=== PATIENT | male | born 1980 | race Hispanic/Latino ===

== ENCOUNTER 2019-07-26 23:32 | Emergency (ER) | payer BC, OTHER ==
[2019-07-27] MEDS ORDERED: SODIUM CHLORIDE 0.9% 1000ML 1,000 ML IV ONE (00:12)
[2019-07-27] MEDS ORDERED: ONDANSETRON HCL 4 MG/2 ML VIAL ONE (00:14)
[2019-07-27] MEDS ORDERED: METOCLOPRAMIDE 10 MG/2 ML VIAL ONE (00:14)
[2019-07-27] MEDS ORDERED: FAMOTIDINE/PF 20 MG/2 ML VIAL IV ONE (00:15)
[2019-07-27 00:21] LABS: BASOPHILS % (AUTO) 0.5 % (0.0-5.0); EOSINOPHILS % (AUTO) 0.9 % (0.0-8.0); HEMATOCRIT 48.6 % (42-54); LYMPHOCYTES % (AUTO) 24.4 % (21.0-51.0); MEAN CORPUSCULAR HEMOGLOBIN 30.1 pg (27.0-33.0); MEAN CORPUSCULAR HGB CONC 33.9 g/dL (32.0-36.0); MEAN CORPUSCULAR VOLUME 88.8 fL (79-99); MONOCYTES % (AUTO) 7.9 % (3.0-13.0); NEUTROPHILS % (AUTO) 66.3 % (40.0-77.0); PLATELET COUNT (AUTO) 302 K/uL (130-400); RED BLOOD CELL COUNT(AUTO) 5.47 MIL/uL (4.50-6.20); RED CELL DISTRIBUTION WIDTH 13.2 % (11.0-15.5); WHITE BLOOD COUNT (AUTO) 10.3 K/uL (4.8-10.8)
[2019-07-27 00:28] LABS: INR 1.12 (0.85-1.15); PARTIAL THROMBOPLASTIN TIME 31.5 SEC (26.3-35.5); PROTHROMBIN TIME 11.7 SEC (9.6-11.6)
[2019-07-27 00:31] LABS: CREATININE 1.3 mg/dL (0.5-1.5); POTASSIUM 3.9 mmol/L (3.5-5.1)
[2019-07-27 00:35] LABS: BILIRUBIN,TOTAL 0.4 mg/dL (0.2-1.0); TOTAL PROTEIN, SERUM 7.5 g/dL (6.0-8.3)
== END 2019-07-27 02:04 | disposition home or self-care (01) ==
LOC: EDH 23:32
DX: R10.13 Epigastric pain (principal); F31.9 Bipolar disorder, unspecified; F41.9 Anxiety disorder, unspecified; Z90.49 Acquired absence of other specified parts of digestive tract; Z79.899 Other long term (current) drug therapy
CPT/HCPCS: 36415; 80053; 82550; 83605; 83690; 84484; 85025; 85610; 85730; 93005; 96374; 96375; 99285; J2405; J2765; J3490; J7030

== ENCOUNTER → 2022-08-08 | Outpatient (CLI) | payer OTHER | END | disposition home or self-care (01) | LOC: RAH 07:13 | PROVIDERS: ATTEND Internal Medicine Gastroenterology | DX: R10.10 Upper abdominal pain, unspecified (principal); R14.0 Abdominal distension (gaseous); R11.0 Nausea | CPT/HCPCS: 78264; A9541 ==

== ENCOUNTER 2023-03-20 17:27 | Emergency (ER) | payer OTHER ==
[~2023-03-20] VITALS: Ht 177.8 cm; Wt 115.2 kg
[2023-03-20] MEDS ORDERED: MORPHINE 4 MG SYG IVP ONE (18:30)
[2023-03-20] MEDS ORDERED: 0.9%NACL 1000ML 1,000 ML IV ONE (18:30)
[2023-03-20] MEDS ORDERED: ONDANSETRON 4MG INJ IVP ONE (18:30)
[2023-03-20 19:15] LABS: BASOPHILS % (AUTO) 0.5 % (0.0-5.0); EOSINOPHILS % (AUTO) 1.9 % (0.0-8.0); HEMATOCRIT 52.7 % (42-54); LYMPHOCYTES % (AUTO) 18.7 % (21.0-51.0); MEAN CORPUSCULAR HEMOGLOBIN 29.3 pg (27.0-33.0); MEAN CORPUSCULAR HGB CONC 33.8 g/dL (32.0-36.0); MEAN CORPUSCULAR VOLUME 86.8 fL (79-99); MONOCYTES % (AUTO) 8.2 % (3.0-13.0); NEUTROPHILS % (AUTO) 69.8 % (40.0-77.0); PLATELET COUNT (AUTO) 358 K/uL (130-400); RED BLOOD CELL COUNT(AUTO) 6.07 MIL/uL (4.50-6.20); RED CELL DISTRIBUTION WIDTH 13.2 % (11.0-15.5); WHITE BLOOD COUNT (AUTO) 12.4 K/uL (4.8-10.8)
[2023-03-20 19:29] LABS: CREATININE 1.3 mg/dL (0.5-1.5); POTASSIUM 3.6 mmol/L (3.5-5.1)
[2023-03-20 19:35] LABS: ALBUMIN 4.2 g/dL (3.5-5.0); TOTAL PROTEIN, SERUM 8.1 g/dL (6.0-8.3)
[2023-03-20 22:37] LABS: APPEARANCE,URINE CLEAR (CLEAR); BILIRUBIN,URINE NEGATIVE (NEGATIVE); COLOR,URINE LIGHT-YELLOW (YELLOW); GLUCOSE, URINE (UA) NEGATIVE (NEGATIVE); KETONES,URINE NEGATIVE (NEGATIVE); LEUKOCYTE ESTERASE ,URINE NEGATIVE Leu/uL (NEGATIVE); NITRATE,URINE NEGATIVE (NEGATIVE); OCCULT BLOOD,URINE NEGATIVE (NEGATIVE); PH,URINE 5.5 (5.0-8.0); PROTEIN,URINE NEGATIVE (NEGATIVE); UROBILINOGEN,URINE 0.2 mg/dL (0.2-1.0)
[2023-03-20] MEDS ORDERED: FAMO20TA8 PO (22:58)
[2023-03-20 23:25] VITALS: BP 130/78
== END 2023-03-20 23:25 | disposition home or self-care (01) ==
LOC: EDH 17:27
DX: K29.70 Gastritis, unspecified, without bleeding (principal); R10.10 Upper abdominal pain, unspecified; R11.0 Nausea; G89.29 Other chronic pain
CPT/HCPCS: 99285; 74176; 96374; 96375; 84484; 80053; 83690; 85025; 81003; 36415; 93005; J7030; J2405; J2270

== ENCOUNTER 2024-12-01 17:55 | Emergency (ER) | payer BC, OTHER ==
[~2024-12-01] VITALS: Ht 177.8 cm; Wt 113.4 kg
[~2024-12-01 17:55] MED LIST: FAMO20TA8 PO
[2024-12-01 18:29] LABS: BASOPHILS # (AUTO) 0.05 K/uL (0.00-0.20); BASOPHILS % (AUTO) 0.5 % (0.0-5.0); EOSINOPHILS # (AUTO) 0.28 K/uL (0.00-0.70); EOSINOPHILS % (AUTO) 3.1 % (0.0-8.0); HEMATOCRIT 50.8 % (42-54); IMMATURE GRANULOCYTE ABSOLUTE 0.03 K/uL (0-1); LYMPHOCYTES # (AUTO) 1.8 K/uL (1.0-4.8); LYMPHOCYTES % (AUTO) 19.9 % (21.0-51.0); MEAN CORPUSCULAR HEMOGLOBIN 29.3 pg (27.0-33.0); MEAN CORPUSCULAR HGB CONC 33.5 g/dL (32.0-36.0); MEAN CORPUSCULAR VOLUME 87.6 fL (79-99); MONOCYTES # (AUTO) 0.6 K/uL (0.1-1.0); MONOCYTES % (AUTO) 6.9 % (3.0-13.0); NEUTROPHILS # (AUTO) 6.4 K/uL (1.8-7.7); NEUTROPHILS % (AUTO) 69.3 % (40.0-77.0); PLATELET COUNT (AUTO) 327 K/uL (130-400); RED CELL DISTRIBUTION WIDTH 12.7 % (11.0-15.5); WHITE BLOOD COUNT (AUTO) 9.2 K/uL (4.8-10.8)
[2024-12-01 18:40] LABS: CREATININE 1.2 mg/dL (0.5-1.3); POTASSIUM 4.1 mmol/L (3.5-5.1)
--- NOTE | 2024-12-01 18:58 | HMCIMG ---
CT HEAD/BRAIN W/O CONTRAST CLINICAL HISTORY: r/facial droop COMPARISON: None TECHNIQUE: Multiple sequential axial images of the head were obtained from the base of the skull through vertex. CT was performed with one or more of the following dose reduction techniques: automated exposure control, adjustment of the mA and/or kV according to patient size, or use of iterative reconstruction technique FINDINGS: The brain parenchyma and CSF spaces are unremarkable. The orbital contents, paranasal sinuses and mastoid air cells are within normal limits. The calvarium is intact. IMPRESSION: Normal study
[2024-12-01] MEDS ORDERED: VALA100031 PO (20:09)
[2024-12-01] MEDS ORDERED: PRED20TA3 PO (20:09)
--- NOTE | 2024-12-01 20:17 | ERN ---
General Chief Complaint: Face Pain/Problem Stated Complaint: FACIAL DROOP Time Seen by MD: 18:07 Time Seen by Midlevel: 18:07 Source: patient History of Present Illness Initial Comments Patient is a 44-year-old male with a past medical history of a left eye retinal detachment presenting to the emergency department of a right facial droop. The patient states his symptoms started four days ago on MondayNovember 27. He states his symptoms started with ear fullness/pain. This developed into some right jaw pain and right eyelid weakness. Yesterday he noticed a facial droop that worsened today. Denies any focal weakness to his upper and lower extremities. The patient is still able to walk without any assistance. Denies any vision changes, dizziness, headache, or any other symptoms at this time. Denies any recent fall or head injury. He does report a recent viral illness where he has been taking [id number]-qkoiclg saline spray and Mucinex. Allergies: Coded Allergies: Iodinated Contrast Media (Unverified Allergy, Unknown, 03/20/23) Home Meds Active Scripts Famotidine (Famotidine) 20 Mg Tablet, 20 MG PO BID, #20 TAB Prov:SARINA VICTORIA 03/20/23 Past Medical History Past Medical History: No Pertinent History Medical History Other: GASTOPARESIS, GASTRITIS, CHRONIC BACK PAIN, GLAUCOMA Past Surgical History: Other Surgical History Other: EYE SURGERY ROS Dictation CONSTITUTIONAL: Negative except for HPI HEAD/FACE: Negative except for HPI EENT: Negative except for HPI RESPIRATORY: Negative except for HPI GASTROINTESTINAL/ABDOMINAL: Negative except for HPI GENITOURINARY: Negative except for HPI MUSCULOSKELETAL: Negative except for HPI INTEGUMENTARY: Negative except for HPI NEUROLOGICAL/PSYCH: Negative except for HPI HEMATOLOGIC/LYMPHATIC: Negative except for HPI All Systems Negative, Except as noted above. 13 point review of systems assessed and all negative except for above. Physical Exam Physical Exam Dictation Vital Signs reviewed General Appearance: Alert, oriented x 3, no acute distress, well developed, nourished. Head and Face: non-traumatic. Eyes: PERRL, pink conjunctivas, eyelid no trauma, anterior chamber with arcus senilis. Ears: Pinnas intact and no signs of trauma or erythema ear canals clear and no discharge TM no erythema Nose: No discharge, no bleeding. Oropharynx: Mouth normal, tongue pink, pharynx clear,no erythema, tonsils no exudates, no abscesses noted, mucous membrane moist Neck: Supple, non-tender, no thyromegaly, no masses, no JVD, no bruits Breast:Deferred Chest:No tenderness, no crepitus, no paradoxical movement, no retractions Lungs:Clear, well-ventilated, symmetric, no rales, no wheezing, no rhonchi, no stridor, good breath sounds bilaterally Heart: Regular rate, regular rhythm, no murmur, no gallops Vascular: no peripheral edema, Abdomen: Soft, positive bowel sounds, nondistended, no guarding, nontender, no rebound, no masses no hepatomegaly, no splenomegaly, no Ambrocio's sign, no hernias. Rectal: Deferred Genital: Deferred Neurological: Normal speech, motor function intact, sensory function intact, right-sided facial droop with forehead involvement, 5/5 strength to bilateral upper and lower extremities. Sensation is intact to face, upper arms, chest, and bilateral lower extremities., patient is ambulatory with a normal gait, patient is unable to fully close his right eye, Musculoskeletal: Neck nontender, full range of motion, back nontender, full range of motion, Extremities: nontender, full range of motion Skin: Color pink, dry, no turgor, no rash, no lacerations, no abrasions, no contusions. Lymphatic: Deferred Stroke Patient?: No Is Patient Candidate for t-PA?: No Did the Patient Receive t-PA?: No NIH STROKE SCALE: NIH STROKE SCALE Response (Comments) Value Level of Consciousness Alert 0 Ask patient month and their age Answers both correct 0 Command to open eyes, make fist and let go Obeys both correct 0 Best gaze (horizontal eye movement) Normal 0 Visual Field Testing No Visual Field Loss 0 Facial Paresis Minor Paralysis 1 Motor Function - Left Arm Normal 0 Motor Function - Right Arm Normal 0 Motor Function - Left Leg Normal 0 Motor Function - Right Leg Normal 0 Limb Ataxia No Ataxia 0 Sensory-pin prick to arms, legs, trunk and face Normal 0 Best Language (describe picture, name items and read) No Aphasia 0 Dysarthria (read several words) Normal Articulation 0 Extinction and Inattention Normal 0 Total 1 Results Laboratory and Microbiology Lab and Micro Result Laboratory Tests Test 12/01/24 18:17 White Blood Count 9.2 K/uL (4.8-10.8) Red Blood Count 5.80 MIL/uL (4.50-6.20) Hemoglobin 17.0 g/dL (14.0-18.0) Hematocrit 50.8 % (42-54) Mean Corpuscular Volume 87.6 fL (79-99) Mean Corpuscular Hemoglobin 29.3 pg (27.0-33.0) Mean Corpuscular Hemoglobin Concent 33.5 g/dL (32.0-36.0) Red Cell Distribution Width 12.7 % (11.0-15.5) Platelet Count 327 K/uL (130-400) Mean Platelet Volume 9.6 fL (7.5-10.5) Immature Granulocyte % (Auto) 0.3 % (0-1) Neutrophils (%) (Auto) 69.3 % (40.0-77.0) Lymphocytes (%) (Auto) 19.9 % (21.0-51.0) L Monocytes (%) (Auto) 6.9 % (3.0-13.0) Eosinophils (%) (Auto) 3.1 % (0.0-8.0) Basophils (%) (Auto) 0.5 % (0.0-5.0) Neutrophils # (Auto) 6.4 K/uL (1.8-7.7) Lymphocytes # (Auto) 1.8 K/uL (1.0-4.8) Monocytes # (Auto) 0.6 K/uL (0.1-1.0) Eosinophils # (Auto) 0.28 K/uL (0.00-0.70) Basophils # (Auto) 0.05 K/uL (0.00-0.20) Absolute Immature Granulocyte (auto 0.03 K/uL (0-1) Nucleated Red Blood Cells 0.0 % (0.0-0.19) Sodium Level 141 mmol/L (136-145) Potassium Level 4.1 mmol/L (3.5-5.1) Chloride Level 103 mmol/L (101-111) Carbon Dioxide Level 32 mmol/L (21-32) Blood Urea Nitrogen 14 mg/dL (7-18) Creatinine 1.2 mg/dL (0.5-1.3) Glomerular Filtration Rate Calc 77 mL/min (>90) Random Glucose 97 mg/dL (70-105) Total Calcium 8.7 mg/dL (8.5-10.1) Labs Reviewed?: Yes MDM MDM: Patient is a 44-year-old male with a past medical history of a left eye retinal detachment presenting to the emergency department of a right facial droop. The patient states his symptoms started four days ago on MondayNovember 27. He states his symptoms started with ear fullness/pain. This developed into some right jaw pain and right eyelid weakness. Yesterday he noticed a facial droop that worsened today. Denies any focal weakness to his upper and lower extremities. The patient is still able to walk without any assistance. Denies any vision changes, dizziness, headache, or any other symptoms at this time. Denies any recent fall or head injury. On physical examination the patient is in no acute distress. The patient arrived via pr ivate vehicle and was able to ambulate from his vehicle into the triaged examination room with no assistance and with a normal gait. His physical examination reveals a right-sided facial droop with forehead involvement. Sensation is intact to the face, upper extremities, and lower extremities. He was full range motion of bilateral upper and lower extremities. There is 5/5 strength to bilateral upper and lower extremities. Sensation is intact. There was no slurred speech noted. Code stroke was not called given onset of symptoms and I have high clinical suspicion for Chavez's palsy. NIH of 1 given his right facial droop. CBC and chemistries are stable. CT scan of the head does not show any intracranial abnormality. On repeat examination the patient was sitting comfortably in his examination bed. He was on his phone playing video games and is in no acute distress. Repeat neurological examination is stable. The patient will be treated for Chavez's palsy. He was given 125 mg of Solu- Medrol IV and ketorolac. He will be discharged home with a prescription for valacyclovir and prednisone. He was advised to follow up with his primary care doctor in 2-3 days for repeat evaluation. The patient was given strict return precautions and he was stable for discharge at this time. All of his questions were answered and patient is comfortable going home. Differential diagnosis: Stroke, Chavez's palsy, viral illness There are no social concerns with this patient. Prescription drug management Prescriptions will include: Valacyclovir, prednisone, Medical management and examination interpretation discussions were had by me with other qualified healthcare professionals as indicated for the patient's care. ED Course Orders Procedure Category Date Status Time Cbc With Differential LAB 12/01/24 Complete 18:08 Basic Metabolic Panel LAB 12/01/24 Complete 18:08 Urinalysis Profile LAB 12/01/24 Logged 18:08 Drug Screen Urine LAB 12/01/24 Logged 18:08 Ct Head/Brain W/O CT 12/01/24 Resulted Contrast 18:08 Vital Signs Date Time Temp Pulse Resp B/P (MAP) Pulse Ox O2 Delivery O2 Flow Rate FiO2 12/01/24 18:10 98.1 75 16 113/76 97 Room Air* 0 21 12/01/24 17:57 98.8 78 18 111/79 98 Room Air 0 [facility] [address] [address] IMAGING REPORT Signed PATIENT: LUPE HINKLE MR#: [id number] : 1980 SEX: M AGE: 44 LOCATION: [facility] ORDER 08 STATUS: REG ER REPORT#: [id number] SERVICE 07 REASON: r/facial droop ORDERING PHYSICIAN: MELISSA POMPA PROCEDURE: HEAD WO - CT HEAD/BRAIN W/O CONTRAST CT HEAD/BRAIN W/O CONTRAST CLINICAL HISTORY: r/facial droop COMPARISON: None TECHNIQUE: Multiple sequential axial images of the head were obtained from the base of the skull through vertex. CT was performed with one or more of the following dose reduction techniques: automated exposure control, adjustment of the mA and/or kV according to patient size, or use of iterative reconstruction technique FINDINGS: The brain parenchyma and CSF spaces are unremarkable. The orbital contents, paranasal sinuses and mastoid air cells are within normal limits. The calvarium is intact. IMPRESSION: Normal study DICTATED BY: SIOBHAN ARCOS DO DATE: 12/01/241855 ELECTRONICALLY SIGNED BY: SIOBHAN ARCOS DO DATE: 12/01/241857 DX & DISP Disposition: Discharge Departure Impression: Primary Impression: Chavez's palsy Condition: Stable Scripts Valacyclovir HCl (Valacyclovir) 1,000 Mg Tablet 1 TAB PO TID for 7 Days, #21 TAB 0 Refills Prov: MELISSA POMPA 12/01/24 Prednisone (Prednisone) 20 Mg Tablet 1 TAB PO BID for 7 Days, #14 TAB 0 Refills Prov: MELISSA POMPA 12/01/24 Additional Instructions: Your blood work today is unremarkable. Your CT scan of the head is normal. Your symptoms are consistent with Chavez's palsy. I recommend corneal eye protection. You may use artificial tears during the day. You may also take your eye shut or wear an eye patch to protect your c ornea from any infection or abrasion. I have given you a prescription for steroids and antivirals which should help improve your symptoms over the next couple of days/weeks. Please follow up with your primary care doctor next week for further evaluation. If you develop any new or worsening symptoms please report to the ER for further evaluation. Referrals: JEMIMA SMITH (PCP) Time of Disposition: 20:07 I have reviewed the case, and I agree with, Diagnosis and Plan I performed the substantive portion of the visit. I have reviewed and personally made and approve the management plan that is documented in the note by myself or the IVETTE. I acknowledge for responsibility for the patient's management plan. MELISSA POMPA Dec 01, 2024 20:17
[2024-12-01] MEDS: Solu-medROL 125MG VIAL IVP ONE (20:40)
[2024-12-01] MEDS: ketOROlac 15MG/ML VIAL (15MG/ML) IV ONE (20:40)
[2024-12-01 20:45] VITALS: BP 110/80; PULSE 72; RESP 16; TEMP 98; O2SAT 98
== END 2024-12-01 20:57 | disposition home or self-care (01) ==
LOC: EDH 17:55
DX: G51.0 Bell's palsy (principal); Z91.041 Radiographic dye allergy status
CPT/HCPCS: 99284; 96374; 70450; 96375; 80048; 85025; 36415; J1885; J2919

== ENCOUNTER 2025-04-28 14:55 | Emergency (ER) | payer BC ==
[~2025-04-28] VITALS: Ht 177.8 cm; Wt 120.2 kg
[~2025-04-28 14:55] MED LIST changes: +PRED20TA3 PO; +VALA100031 PO
[2025-04-28] MEDS: BENZONATATE 100 MG CAPSULE PO STA (15:42)
--- NOTE | 2025-04-28 15:48 | EKG ---
[facility] Test Date: 2025-04-28 Test Time: 15:44:10 Pat Name: LUPE HINKLE Department: [facility] Room: Gender: M Cigarette Catcher: 08 : 1980 Requested By: RENETTA CHARLES Order Number: [id number] Reading MD: Reshma Vergara Measurements Intervals [place] Rate: 101 P: 30 [place]: 133 QRS: -27 QRSD: 112 T: 39 QT: 350 QTc: 455 Interpretive Statements Sinus tachycardia Compared to ECG 03/20/2023 18:32:16 Sinus rhythm no longer present Intraventricular conduction delay no longer present Electronically Signed On 04-30-2025 14:13:01 CDT by Reshma Vergara Please click the below link to view image of tracing.
[2025-04-28 15:50] LABS: IMMATURE GRANULOCYTE ABSOLUTE 0.07 K/uL (0-1); NUCLEATED RED BLOOD CELLS 0.0 % (0.0-0.19); PLATELET COUNT (AUTO) 307 K/uL (130-400); RED BLOOD CELL COUNT(AUTO) 5.38 MIL/uL (4.50-6.20); RED CELL DISTRIBUTION WIDTH 13.1 % (11.0-15.5); WHITE BLOOD COUNT (AUTO) 13.8 K/uL (4.8-10.8)
[2025-04-28 15:53] VITALS: PULSE 102; RESP 18
[2025-04-28 16:03] LABS: CREATININE 0.9 mg/dL (0.5-1.3); GLOMERULAR FILTR. RATE CALC 109.0 mL/min (>90); GLUCOSE,RANDOM 94.0 mg/dL (70-105); SODIUM SERUM 146.0 mmol/L (136-145); UREA NITROGEN, BLOOD 12.0 mg/dL (7-18)
[2025-04-28 16:05] LABS: SARS-CoV-2, RNA, NAAT POSITIVE SARS CoV-2 (NEGATIVE)
[2025-04-28 16:14] LABS: INFLUENZA TYPE A Negative For Type A (NEGATIVE); INFLUENZA TYPE B Negative For Type B (NEGATIVE)
--- NOTE | 2025-04-28 16:31 | HMCIMG ---
EXAM: CR Chest, 1 View. CLINICAL HISTORY: cough COMPARISON: None provided. FINDINGS: LUNGS: The lungs show no infiltrate or other acute finding. PLEURAL SPACES: No pleural effusion or pneumothorax. MEDIASTINUM: The cardiomediastinal silhouette is within normal limits. BONES: No aggressive appearing osseous lesion seen. IMPRESSION: No acute cardiopulmonary pathology is evident. /[place]
[2025-04-28] MEDS ORDERED: LORA10TA7 PO (17:02)
[2025-04-28] MEDS ORDERED: ALBUHFA IH (17:02)
[2025-04-28] MEDS ORDERED: BENZ-39 PO (17:02)
--- NOTE | 2025-04-28 17:12 | ERN ---
ED Note History of Present Illness Stated Complaint: SOB X 2 WEEKS, TROUBLE BREATHING Chief Complaint: Cough Time Seen by MD: 14:59 Time Seen by Midlevel: 15:01 Dictation: 44-year-old male coming in with complaints of cough, states has been intermitten t for the last couple of weeks. On the 16 of April was seen by the PCP which prescribed him amoxicillin Z-Edgard and albuterol. Patient states he felt better but then on Monday he began again with the shortness a breath. Denies having any medical problems. Allergies: Coded Allergies: Iodinated Contrast Media (Unverified Allergy, Unknown, 03/20/23) Home Meds Active Scripts Valacyclovir HCl (Valacyclovir) 1,000 Mg Tablet, 1 TAB PO TID for 7 Days, #21 TAB 0 Refills Prov:MELISSA POMPA 12/01/24 Prednisone (Prednisone) 20 Mg Tablet, 1 TAB PO BID for 7 Days, #14 TAB 0 Refills Prov:MELISSA POMPA 12/01/24 Famotidine (Famotidine) 20 Mg Tablet, 20 MG PO BID, #20 TAB Prov:SARINA VICTORIA V [employer] 03/20/23 Past Medical History Past Medical History: Asthma, Other Additional Past Medical Hx: GASTOPARESIS, GASTRITIS, CHRONIC BACK PAIN, GLAUCOMA, BELLS PALSY Surgical History: Other Surgical History Other: EYE SURGERY Review of System Dictation Constitutional: Negative for fever,chills, and weight loss Eyes: Negative for injury, pain,redness, and discharge ENT: Negative for injury,pain or swelling Cardiovascular: Negative for chest pain, palpitations, and edema Respiratory complaining of cough Abdomen/GI: Negative for abdominal pain, nausea, vomiting, diarrhea, and constipation Back: Negative for injury and pain : Negative for injury, bleeding and discharge MS/Extremity: Negative for injury and deformity Skin: Negative for rash, and discoloration Neuro: Negative for headache, weakness, numbness, tingling, and seizure Psych: Negative for suicide ideation, homicidal ideation, and hallucinations Review of Systems: was completed Initial Vital Sign VS Vital Signs Date Time Temp Pulse Resp B/P (MAP) Pulse Ox O2 Delivery O2 Flow Rate FiO2 04/28/25 14:57 98.2 106 18 124/82 95 Room Air 0 04/28/25 15:09 21 Physical Exam Dictation General: awake, alert, NAD Head/Face: Normocephalic, atraumatic Eyes: PERRL, EOMI, vision at baseline ENT: oral cavity clear, TMs clear, no signs of infection Neck: Trachea midline, supple, no nuchal rigidity Cardiovascular: RRR, normal S1/S2, No MRGs, no JVD Respiratory: CTAB, no respiratory distress, No rales or wheezes Abdomen: Soft, non-tender, non-distended, normal bowel sounds, no guarding or rebound. Skin: Warm, dry, normal turgor, no rash MS/Extremity: Pulses equal, no cyanosis, neurovascular intact, FROM Neuro: COAx4, GCS 15, strength 5/5, CN 2-12 intact, normal cerebellar exam, normal gait, Psych: Normal behavior, mood, and affect normal Results (Laboratory/Radiology) Laboratory/Radiology Laboratory Tests Test 04/28/25 15:37 04/28/25 15:39 Influenza Type A Antigen Negative For Type A Influenza Type B Antigen Negative For Type B SARS-CoV-2, RNA, NAAT POSITIVE SARS CoV-2 White Blood Count 13.8 K/uL (4.8-10.8) H Red Blood Count 5.38 MIL/uL (4.50-6.20) Hemoglobin 15.8 g/dL (14.0-18.0) Hematocrit 48.3 % (42-54) Mean Corpuscular Volume 89.8 fL (79-99) Mean Corpuscular Hemoglobin 29.4 pg (27.0-33.0) Mean Corpuscular Hemoglobin Concent 32.7 g/dL (32.0-36.0) Red Cell Distribution Width 13.1 % (11.0-15.5) Platelet Count 307 K/uL (130-400) Mean Platelet Volume 9.7 fL (7.5-10.5) Immature Granulocyte % (Auto) 0.5 % (0-1) Neutrophils (%) (Auto) 78.3 % (40.0-77.0) H Lymphocytes (%) (Auto) 12.4 % (21.0-51.0) L Monocytes (%) (Auto) 6.0 % (3.0-13.0) Eosinophils (%) (Auto) 2.4 % (0.0-8.0) Basophils (%) (Auto) 0.4 % (0.0-5.0) Neutrophils # (Auto) 10.8 K/uL (1.8-7.7) H Lymphocytes # (Auto) 1.7 K/uL (1.0-4.8) Monocytes # (Auto) 0.8 K/uL (0.1-1.0) Eosinophils # (Auto) 0.33 K/uL (0.00-0.70) Basophils # (Auto) 0.06 K/uL (0.00-0.20) Absolute Immature Granulocyte (auto 0.07 K/uL (0-1) Nucleated Red Blood Cells 0.0 % (0.0-0.19) Sodium Level 146 mmol/L (136-145) H Potassium Level 3.8 mmol/L (3.5-5.1) Chloride Level 108 mmol/L (101-111) Carbon Dioxide Level 26 mmol/L (21-32) Blood Urea Nitrogen 12 mg/dL (7-18) Creatinine 0.9 mg/dL (0.5-1.3) Glomerular Filtration Rate Calc 109 mL/min (>90) Random Glucose 94 mg/dL (70-105) Total Calcium 8.7 mg/dL (8.5-10.1) Labs Reviewed?: Yes X-RAY Comment: [place] [address] [address] IMAGING REPORT Signed PATIENT: LUPE HINKLE MR#: [id number] : 1980 SEX: M AGE: 44 LOCATION: [facility] ORDER 1531 STATUS: REG REPORT#: [id number] SERVICE 1529 REASON: cough ORDERING PHYSICIAN: RENETTA CHARLES NP PROCEDURE: CXR1VW - CHEST 1VW EXAM: CR Chest, 1 View. CLINICAL HISTORY: cough COMPARISON: None provided. FINDINGS: LUNGS: The lungs show no infiltrate or other acute finding. PLEURAL SPACES: No pleural effusion or pneumothorax. MEDIASTINUM: The cardiomediastinal silhouette is within normal limits. BONES: No aggressive appearing osseous lesion seen. IMPRESSION: No acute cardiopulmonary pathology is evident. /[place] DICTATED BY: EDMUND HORNER Jr., MD DATE: 04/28/251729 ELECTRONICALLY SIGNED BY: EDMUND HORNER Jr., MD DATE: 04/28/251729 ED Course ED Course Orders Procedure Category Date Status Time Cbc With Differential LAB 04/28/25 Complete 15:29 Basic Metabolic Panel LAB 04/28/25 Complete 15:29 Chest 1vw RAD 04/28/25 Resulted 15:29 Covid Rna Naat LAB 04/28/25 Complete 15:29 Influenza Type A & B, LAB 04/28/25 Complete Rapid 15:29 12 Lead Ekg Tracing- EKG 04/28/25 Complete Technical 15:29 Methylprednisolone PHA 04/28/25 Complete Succ 125mg (Solu-Medr 15:29 Ipratropium/Albuterol PHA 04/28/25 Complete Neb (Duoneb) 15:29 Benzonatate 100 Mg PHA 04/28/25 Complete Capsule (Tessalon 100 15:29 Current Medications Medications (Trade) Dose Ordered Sig/Mike Route PRN Reason Start Time Stop Time Status Last Admin Dose Admin Albuterol (DUOneb) 1 UDVIAL ONCE STAT IH 04/28/25 15:29 04/28/25 15:33 DC 04/28/25 15:53 Benzonatate (Tessalon 100mg Caps) 200 mg ONCE STAT PO 04/28/25 15:29 04/28/25 15:33 DC 04/28/25 15:42 Methylprednisolone Sodium Succinate (Solu-medROL 125MG) 125 mg ONCE STAT IVP 04/28/25 15:29 04/28/25 15:33 DC 04/28/25 15:42 Vital Signs Date Time Temp Pulse Resp B/P (MAP) Pulse Ox O2 Delivery O2 Flow Rate FiO2 04/28/25 15:53 102 18 04/28/25 15:09 98.2 102 16 125/80 98 Room Air* 0 21 04/28/25 14:57 98.2 106 18 124/82 95 Room Air 0 Medical Decision Making MDM MDM: 44-year-old male coming in with complaints of cough, states has been intermittent for the last couple of weeks. On the 16 of April was seen by the PCP which prescribed him amoxicillin Z-Edgard and albuterol. Patient states he felt better but then on Monday he began again with the shortness a breath. Denies having any medical problems. Blood work shows white count of 13, no anemia, thrombocytosis PD. Chemistry unremarkable. Chest x-ray shows no acute finding. Patient has a positive for COVID. Discussed findings with the patient. Educated patient that we will prescribe him medications for his symptoms and have him follow up outpatient with his PCP. Patient verbalized understanding, answered all questions. Differential diagnosis: Pneumonia, COVID, flu Rationale: Tests considered and ordered secondary to shared decision making include: Previous outside records reviewed: Old ER visits. Risk of complication and/or morbidity or mortality of patient management: None Medications-Per medication reconciliation Need for hospitalization: Patient does not meet criteria for hospitalization. Need for emergency major/minor surgery: No There are no social concerns with this patient. Prescription drug management Prescriptions will include symptomatic care Patient's prior external medical records from other ER visits were reviewed by me as indicated. Prior testing and results from previous visits were reviewed. Prior tests were taken into account with medical decision making and resource utilization, independent historian/historians were used to obtain complete medical history. I independently interpreted the test that were performed, results were reviewed by me and considered findings on radiology if ordered. Medical management and examination interpretation discussions were had by me with other qualified healthcare professionals as indicated for the patient's care. DX & DISP Disposition: Discharge Departure Impression: Primary Impression: COVID-19 Condition: Stable Scripts Benzonatate (Tessalon Perles) 100 Mg Cap 100 MG PO TID for cough, #30 CAP 0 Refills Prov: RENETTA CHARLES ANATOMY AND PHYSIOLOGY INSTRUCTOR 04/28/25 Loratadine (Loratadine) 10 Mg Tablet 1 TAB PO DAILY for allergy symptoms for 30 Days, #30 TAB 0 Refills Prov: APOLINAR CHARLESCE ANATOMY AND PHYSIOLOGY INSTRUCTOR 04/28/25 Albuterol Sulfate (Ventolin Hfa/Proventil Hfa/Proair Hfa) 90 Mcg Puff 2 PUFF IH Q4H for WHEEZING, #1 INHALER 0 Refills Prov: RENETTA CHARLES ANATOMY AND PHYSIOLOGY INSTRUCTOR 04/28/25 Additional Instructions: You tested positive for COVID. You can take the medications that I prescribed for symptomatic control and follow up with your primary doctor in 1-2 days. If you have any worsening symptoms return back to the hospital. Referrals: JEMIMA SMITH (PCP) Time of Disposition: 17:02 I have reviewed the case, and I agree with, Diagnosis and Plan RENETTA CHARLES NP Apr 28, 2025 17:12
[2025-04-28 17:14] VITALS: BP 125/80; PULSE 95; RESP 16; TEMP 98.2; O2SAT 98
== END 2025-04-28 17:28 | disposition home or self-care (01) ==
LOC: EDH 14:55
DX: U07.1 COVID-19 (principal); J45.909 Unspecified asthma, uncomplicated; Z79.52 Long term (current) use of systemic steroids; Z79.624 Long term (current) use of inhibitors of nucleotide synthesis; Z91.041 Radiographic dye allergy status
CPT/HCPCS: 99284; 96374; 71045; 87635; 80048; 85025; 87804 ×2; 36415; 93005; 94640; J2919